=== PATIENT | male | born 1960 | race Caucasian/White ===

== ENCOUNTER 2017-09-04 06:11 | Emergency (ER) | payer SELFPAY ==
[~2017-09-04] VITALS: Ht 185.4 cm; Wt 82.4 kg
[~2017-09-04 06:11] MED LIST: DICL75 PO; MMW SSP; PENI500T PO; RANI150C PO
[2017-09-04 06:13] VITALS: BP 213/98; PULSE 93; RESP 16; TEMP 98; O2SAT 98
[2017-09-04 06:20] VITALS: BP 213/98; PULSE 93; RESP 16; TEMP 98; O2SAT 98
--- NOTE | 2017-09-04 06:41 | PD ---
HPI Chief Complaint: Nosebleed Time Seen by Provider: 06:36 Travel History International Travel<30 days: No Contact w/Intl Traveler<30days: No Traveled to known affect area: No History of Present Illness HPI 56-year-old male presents to the emergency department by private transportation for evaluation of nosebleed. Patient states since approximately 2 PM yesterday he's had 3 or 4 episodes of heavy epistaxis. Patient denies any sinus pressure drainage pain or recent illness. Patient states that he may have actually traumatize the lining of his nose with digital exploration earlier tonight while he was sleeping. Patient reports that at 2 PM yesterday he started having a heavy nosebleed spontaneously draining from the right nostril and then this resolved after approximately 20 minutes of direct pressure again had a recurrence around 7 PM and then went to bed and was awakened from sleep just prior to arrival to the emergency department with epistaxis. Patient does have history of hypertension and is not taking any medications at this time. He also has history of alcohol use and drinks beer daily. [facility] Past Medical History Narrative Medical Testicular cancer herniorrhaphy tobacco use alcohol use nursing notes reviewed Hypertension: Yes ?: Not Past Surgical History Genitourinary Surgery: Yes (TESTICULAR CANCER REMOVED) Other Surgery: Yes (RT INGUINAL HERNIA REPAIR) Social History Alcohol Use: Yes (2 DRINKS PER DAY) Tobacco Use: Yes (1 PPD) Substance Use: No Allergies-Medications (Allergen,Severity, Reaction): Uncoded Allergies: SODIUM PENTOTHAL (Adverse Reaction, Mild, NAUSEA, 08/10/10) Reported Meds & Prescriptions Reported Meds & Active Scripts Active Clonidine (Clonidine HCl) 0.1 Mg Tab 0.1 Mg PO Q12HR PRN Lisinopril 10 Mg Tab 10 Mg PO DAILY Reported Aspirin 325 Mg Tab 975 Mg PO DAILY Ranitidine (Ranitidine HCl) 150 Mg Cap 150 Mg PO DAILY Review of Systems Except as stated in HPI: all other systems reviewed are Neg Physical Exam Narrative GENERAL: Well-developed well-nourished female in no acute distress no respiratory distress SKIN: Warm and dry. HEAD: Normocephalic. EYES: No scleral icterus. No injection or drainage. ENT: Mucous membranes moist , airway is patent, posterior pharynx no bleeding or clots noted. Right nostril with partial occluding clot left nostril is clear except for mild hypernatremia, no active bleeding. NECK: Supple, trachea midline. No JVD or lymphadenopathy. CARDIOVASCULAR: Regular rate and rhythm without murmurs, gallops, or rubs. RESPIRATORY: Breath sounds equal bilaterally. No accessory muscle use. GASTROINTESTINAL: Abdomen soft, non-tender, nondistended. MUSCULOSKELETAL: No cyanosis, or edema. BACK: Nontender without obvious deformity. No CVA tenderness. Data Data Last Documented VS Vital Signs Date Time Temp Pulse Resp B/P (MAP) Pulse Ox O2 Delivery O2 Flow Rate FiO2 09/04/17 06:47 84 18 177/90 (119) 84 16 170/91 (117) 95 18 173/97 (122) 09/04/17 06:20 98.0 98 Orders Orders Oxymetazoline 0.05% Edgardo Campti (Afrin 0.0 (09/04/17 06:45) Orthostatic Vital Signs (09/04/17 06:36) MDM Medical Decision Making Medical Screen Exam Complete: Yes Emergency Medical Condition: Yes Medical Record Reviewed: Yes Differential Diagnosis Epistaxis, sinusitis, direct trauma, uncontrolled hypertension Narrative Course Patient is monitor for blood pressure values and spray administered to each naris Patient is identified to have hypertension most likely precipitant for spontaneous nosebleed although digital trauma may also have contributed; patient administered clonidine 0.1 mg by mouth and will be given prescription for lisinopril his previous antihypertensive medication along with as needed clonidine for breakthrough hypertensive blood pressures. Patient encouraged to reestablish with primary care provider. Patient remains without active epistaxis no abrasion or trauma seen along the mucous membrane or septum. @ 0700 care signed over to Dr Soria Diagnosis Primary Impression: Epistaxis Additional Impression: HTN (hypertension) Qualified Codes: I10 - Essential (primary) hypertension Referrals: [facility] call for appointment [facility] call for appointment [facility] call for appointment Patient Instructions: General Instructions Additional Instructions: Discontinue daily ibuprofen use May use aspirin 81 mg daily. Avoid regular dose aspirin use daily Discontinue alcohol consumption; follow up with Richard Garcia regarding programs to help with decreasing and discontinued use of alcohol Take blood pressure medication lisinopril as prescribed daily monitor blood pressures closely and may use clonidine on it only as-needed basis for breakthrough blood pressure greater than 180/95 this is not to be taken on a daily basis Use saline nasal spray to keep mucous membranes of the nose moist Avoid digital manipulation of the nostril; avoid blowing her nose today Follow-up with primary care provider/[facility] --- call to make an appointment Follow up with ENT as needed Return to the emergency department for any concerns or change in condition Med/Other Pt SpecificInfo: Prescription(s) given Scripts Clonidine (Clonidine) 0.1 Mg Tab 0.1 MG PO Q12HR Y for SBP>180, DBP>95, #5 TAB 0 Refills Prov: Naya Rene MD 09/04/17 Lisinopril (Lisinopril) 10 Mg Tab 10 MG PO DAILY, #30 TAB 0 Refills Prov: Naya Rene MD 09/04/17 Naya Rene MD Sep 04, 2017 06:41
[2017-09-04] MEDS ORDERED: OXYMETAZOLINE HCL 0.05% 15 ML NASAL SPRAY NASAL ONE (06:45)
[2017-09-04 06:47] VITALS: BP_SYST 170; BP_SYST 173; BP_SYST 177; BP_DIAS 90; BP_DIAS 91; BP_DIAS 97; RESP 16; RESP 18
[2017-09-04] MEDS ORDERED: RANI150C PO (06:55)
[2017-09-04] MEDS ORDERED: ASPI-183 PO (06:55)
[2017-09-04] MEDS ORDERED: CLON0.1T PO (07:05)
[2017-09-04] MEDS ORDERED: LISI10TA3 PO (07:05)
[2017-09-04] MEDS ORDERED: cloNIDine HCL 0.1 MG TAB PO ONE (07:30)
--- NOTE | 2017-09-04 07:30 | PD ---
Physical Exam Narrative Received sign out from previous team to reevaluate patient. Please see her note for further details. 56yo M with HTN not on medication here with epistaxis. He was given afrin nasal spray. BP was elevated and pt was given clonidine 0.1mg PO. BP improved to 180/97. Pt is asymptomatic. Pt has been observed in the ED and has no more epistaxis. No blood in posterior pharynx. Dry blood in right nostril. Denies any dizziness, chest pain, sob, n/v, abdominal pain, focal weakness or numbness. Previous physician has already wrote him prescriptions for HTN. Data Data Last Documented VS Vital Signs Date Time Temp Pulse Resp B/P (MAP) Pulse Ox O2 Delivery O2 Flow Rate FiO2 09/04/17 07:57 180/97 (124) 09/04/17 06:47 84 18 84 16 95 18 09/04/17 06:20 98.0 98 Orders Orders Oxymetazoline 0.05% Edgardo [place] (Afrin 0.0 (09/04/17 06:45) Orthostatic Vital Signs (09/04/17 06:36) Clonidine (Catapres) (09/04/17 07:30) Ed Discharge Order (09/04/17 07:38) [facility] Supervised Visit with ENRIQUE: No Diagnosis Primary Impression: Epistaxis Additional Impression: HTN (hypertension) Qualified Codes: I10 - Essential (primary) hypertension Referrals: [facility] call for appointment [facility] call for appointment [facility] call for appointment Patient Instructions: General Instructions, Nosebleed (ED), Hypertension (ED) Departure Forms: Tests/Procedures Additional Instruction: Discontinue daily ibuprofen use May use aspirin 81 mg daily. Avoid regular dose aspirin use daily Discontinue alcohol consumption; follow up with Richard Garcia regarding programs to help with decreasing and discontinued use of alcohol Take blood pressure medication lisinopril as prescribed daily monitor blood pressures closely and may use clonidine on it only as-needed basis for breakthrough blood pressure greater than 180/95 this is not to be taken on a daily basis Use saline nasal spray to keep mucous membranes of the nose moist Avoid digital manipulation of the nostril; avoid blowing her nose today Follow-up with primary care provider/[facility] --- call to make an appointment Follow up with ENT as needed Return to the emergency department for any concerns or change in condition Scripts Clonidine (Clonidine) 0.1 Mg Tab 0.1 MG PO Q12HR Y for SBP>180, DBP>95, #5 TAB 0 Refills Prov: Naya Rene MD 09/04/17 Lisinopril (Lisinopril) 10 Mg Tab 10 MG PO DAILY, #30 TAB 0 Refills Prov: Naya Rene MD 09/04/17 Disposition: 01 DISCHARGE HOME Condition: Stable Pearl Soria DO Sep 04, 2017 07:30
[2017-09-04 07:47] VITALS: BP 181/105
[2017-09-04 07:57] VITALS: BP 180/97
== END 2017-09-04 08:04 | disposition home or self-care (01) ==
LOC: PHED 06:11
DX: R04.0 Epistaxis (principal); I10 Essential (primary) hypertension; F17.200 Nicotine dependence, unspecified, uncomplicated; Z79.82 Long term (current) use of aspirin
CPT/HCPCS: 99284

== ENCOUNTER 2017-09-04 20:37 | Emergency (ER) | payer SELFPAY ==
[~2017-09-04] VITALS: Ht 185.4 cm; Wt 82.1 kg
[~2017-09-04 20:37] MED LIST changes: +ASPI-183 PO; +CLON0.1T PO; +LISI10TA3 PO
[2017-09-04 20:49] VITALS: BP 182/100; PULSE 95; RESP 18; TEMP 98.5; O2SAT 98
[2017-09-04] MEDS ORDERED: LIDOCAINE HCL 2% JELLY 5 ML SYRINGE TOPICAL ONE (21:15)
--- NOTE | 2017-09-04 21:42 | PD ---
HPI . Nosebleed Chief Complaint: Nosebleed Time Seen by Provider: 20:56 Travel History International Travel<30 days: No Contact w/Intl Traveler<30days: No Traveled to known affect area: No History of Present Illness HPI This patient presents with a chief complaint of a nosebleed. Onset was early this morning. It has bled off and on since then. He was seen earlier in the day and was given Afrin with good control of his bleeding. He was also given clonidine because of elevated blood pressure. He presents back tonight complaining with continued episodic bleeding from his right near. He is also now complaining with about 5 or 6 loose, dark stools since leaving this morning.. He does not have any weakness or dizziness. PFSH Past Medical History Hypertension: Yes Tetanus Vaccination: Unknown Influenza Vaccination: No Past Surgical History Genitourinary Surgery: Yes (TESTICULAR CANCER REMOVED) Other Surgery: Yes (RT INGUINAL HERNIA REPAIR) Social History Alcohol Use: Yes (6-7 DRINKS PER DAY) Tobacco Use: Yes (1 to 1-1/2ppd) Substance Use: No Allergies-Medications (Allergen,Severity, Reaction): Uncoded Allergies: SODIUM PENTOTHAL (Adverse Reaction, Mild, NAUSEA, 08/10/10) Reported Meds & Prescriptions Reported Meds & Active Scripts Active Clonidine (Clonidine HCl) 0.1 Mg Tab 0.1 Mg PO Q12HR PRN Lisinopril 10 Mg Tab 10 Mg PO DAILY Reported Aspirin 325 Mg Tab 975 Mg PO DAILY Ranitidine (Ranitidine HCl) 150 Mg Cap 150 Mg PO DAILY Review of Systems Except as stated in HPI: all other systems reviewed are Neg HENT: Positive: Nosebleed Gastrointestinal: Positive: Diarrhea, Other (dark stools) Physical Exam Narrative GENERAL: Awake and alert and in no acute distress. He is dabbing at his nose but is not holding pressure. SKIN: Warm and dry. HEAD: Normocephalic/atraumatic. EYES: Pupils are equal. Extraocular movements are intact. ENT: He has evidence of fresh bleeding from Kiesselbach's plexus on the right. It is not really actively bleeding. I do not see any blood in the oropharynx. NECK: Normal range of motion. CARDIOVASCULAR: Regular rate and rhythm. RESPIRATORY: Nonlabored respirations. RECTAL: There is loose, dark stool around the anus. MUSCULOSKELETAL: Atraumatic. NEUROLOGICAL: Nonfocal. PSYCHIATRIC: Appropriate mood and affect. Data Data Last Documented VS Vital Signs Date Time Temp Pulse Resp B/P (MAP) Pulse Ox O2 Delivery O2 Flow Rate FiO2 09/04/17 20:49 98.5 95 18 182/100 (127) 98 Orders Orders Lidocaine 2% Jelly (Xylocaine 2% Jelly) (09/04/17 21:15) MDM Medical Decision Making Medical Screen Exam Complete: Yes Emergency Medical Condition: Yes Medical Record Reviewed: Yes (please see HPI for pertinent info from review of records) Differential Diagnosis Differential diagnosis includes but is not limited to epistaxis due to an upper respiratory infection, coagulopathy, local trauma, nasal fracture Narrative Course This patient presents for the second time today with epistaxis. I will pack his nose. Procedures Procedure Narrative First, a lidocaine jelly-soaked cotton ball was placed in the right nare. The cotton ball was later removed and replaced with a Merocel sponge which had been trimmed. He tolerated the procedure well. [facility] Point of Care Internal Pos. & Neg. Controls: Passed Fecal Specimen Occult Blood: Positive Diagnosis Primary Impression: Epistaxis Additional Impression: Melena Patient Instructions: Epistaxis (DC), General Instructions Additional Instructions: Return on to have the packing removed. Disposition: 01 DISCHARGE HOME Condition: Stable Vibha Sánchez MD Sep 04, 2017 21:42
[2017-09-04 21:46] VITALS: BP 171/88
== END 2017-09-04 21:58 | disposition home or self-care (01) ==
LOC: PHED 20:37
DX: R04.0 Epistaxis (principal); K92.1 Melena; I10 Essential (primary) hypertension; F17.200 Nicotine dependence, unspecified, uncomplicated; Z79.82 Long term (current) use of aspirin
CPT/HCPCS: 99283

== ENCOUNTER 2017-09-06 17:54 | Emergency (ER) | payer SELFPAY ==
[~2017-09-06] VITALS: Ht 185.4 cm; Wt 83.0 kg
[~2017-09-06 17:54] MED LIST changes: -DICL75 PO; -MMW SSP; -PENI500T PO
[2017-09-06 18:01] VITALS: BP 126/58; PULSE 81; RESP 16; TEMP 97.7; O2SAT 100
--- NOTE | 2017-09-06 18:28 | PD ---
HPI . Packing removal Chief Complaint: ENT Complaint Time Seen by Provider: 18:21 Travel History International Travel<30 days: No Contact w/Intl Traveler<30days: No Traveled to known affect area: No History of Present Illness HPI Patient is here to have the packing removed from his right nose. It was packed 2 days ago. He reports no problems since then. PFSH Past Medical History Cardiovascular Problems: Yes (htn on meds) Hypertension: Yes Past Surgical History Genitourinary Surgery: Yes (TESTICULAR CANCER REMOVED) Other Surgery: Yes (RT INGUINAL HERNIA REPAIR) Social History Alcohol Use: Yes (6-7 DRINKS PER DAY) Tobacco Use: Yes (1 to 1-1/2ppd) Substance Use: No Allergies-Medications (Allergen,Severity, Reaction): Uncoded Allergies: SODIUM PENTOTHAL (Adverse Reaction, Mild, NAUSEA, 09/06/17) . Reported Meds & Prescriptions Reported Meds & Active Scripts Active Clonidine (Clonidine HCl) 0.1 Mg Tab 0.1 Mg PO Q12HR PRN Lisinopril 10 Mg Tab 10 Mg PO DAILY Reported Aspirin 325 Mg Tab 975 Mg PO DAILY Ranitidine (Ranitidine HCl) 150 Mg Cap 150 Mg PO DAILY Review of Systems Except as stated in HPI: all other systems reviewed are Neg Physical Exam Narrative GENERAL: Awake and alert and in no acute distress. SKIN: Warm and dry. HEAD: Normocephalic/atraumatic. EYES: Pupils are equal. Extraocular movements are intact. ENT: Murocel sponge is in the right nare. There is no visible blood on the sponge. NECK: Normal range of motion. CARDIOVASCULAR: Regular rate and rhythm. RESPIRATORY: Nonlabored respirations. MUSCULOSKELETAL: Atraumatic. NEUROLOGICAL: Nonfocal. PSYCHIATRIC: Appropriate mood and affect. Data Data Last Documented VS Vital Signs Date Time Temp Pulse Resp B/P (MAP) Pulse Ox O2 Delivery O2 Flow Rate FiO2 09/06/17 18:01 97.7 81 16 126/58 (80) 100 MDM Medical Decision Making Medical Screen Exam Complete: Yes Emergency Medical Condition: Yes Differential Diagnosis Differential diagnosis includes but is not limited to epistaxis due to an upper respiratory infection, coagulopathy, local trauma, nasal fracture Narrative Course Patient presents to have the packing removed from the right nares. The packing was removed. There was scant blood on the packing. Diagnosis Primary Impression: Anterior epistaxis Patient Instructions: Epistaxis (DC), General Instructions Disposition: 01 DISCHARGE HOME Condition: Stable Vibha Sánchez MD Sep 06, 2017 18:28
== END 2017-09-06 18:36 | disposition home or self-care (01) ==
LOC: PHEFT 17:54
DX: R04.0 Epistaxis (principal); Z48.00 Encounter for change or removal of nonsurgical wound dressing
CPT/HCPCS: 99281